=== PATIENT | male | born 1965 | race Hispanic/Latino ===

== ENCOUNTER 2017-05-17 19:30 | Emergency (ER) | payer OTHER ==
--- NOTE | 2017-05-17 20:55 | Emergency Department Report ---
ED General Adult HPI - General Chief complaint: Allergic Reaction Stated complaint: ALLERGIC REACTION Time Seen by Provider: 05/17/17 20:32 Source: patient, EMS (ems notes not available at time of chart dictation), RN notes reviewed Mode of arrival: Wheelchair Limitations: No Limitations - History of Present Illness Initial comments: This is a 51-year-old male who was previously unknown to this provider, his primary care doctor is with [facility]. He is brought to the hospital by EMS for presumed allergic reaction. At 5:50 PM today, patient began to develop burning sensation on his scalp, face, subjective feeling of swelling inside his mouth, diffuse itching and skin rash. He was given steroids, and Benadryl by EMS, and reports that all of his symptoms have since resolved. Patient denies complaints at this time. He does not have any idea as to what may have caused this. No recent colognes, creams, lotions, hair dye, food additives or products, or any new agents in his life. He has no symptoms at this time, and would like to go home -: Gradual Consistency: now resolved Improves with: medication Associated Symptoms: nausea/vomiting (now resolved), other (all symptoms resolved) - Related Data Home Medications Medication Instructions Recorded Confirmed Last Taken Aspirin [Adult Low Dose Aspirin EC] 81 mg PO DAILY 05/17/17 05/17/17 05/17/17 AtorvaSTATin [Lipitor] 10 mg PO QHS 05/17/17 05/17/17 05/17/17 Previous Rx's Medication Instructions Recorded Last Taken Type EPINEPHrine [Epipen 2-Quoc] 0.3 mg IM DAILY PRN #2 ml 05/17/17 Unknown Rx Famotidine [Pepcid] 20 mg PO BID #10 tablet 05/17/17 Unknown Rx diphenhydrAMINE [Benadryl] 50 mg PO Q8HR PRN #20 capsule 05/17/17 Unknown Rx predniSONE [Deltasone] 40 mg PO QDAY #8 tab 05/17/17 Unknown Rx Allergies Allergy/AdvReac Type Severity Reaction Status Date / Time No Known Allergies Allergy Unverified 05/17/17 19:58 ED Review of Systems ROS: Stated complaint: ALLERGIC REACTION Other details as noted in HPI Constitutional: denies: fever Eyes: denies: eye discharge ENT: denies: throat pain, epistaxis, congestion Respiratory: denies: cough, wheezing Cardiovascular: denies: chest pain Gastrointestinal: denies: abdominal pain Genitourinary: denies: dysuria Musculoskeletal: denies: arthralgia Skin: lesions (now resolved) Neurological: weakness (now resolved) ED Past Medical Hx - Past Medical History Previous Medical History?: Yes Additional medical history: high cholesterol - Surgical History Past Surgical History?: No - Social History Smoking Status: Current Every Day Smoker Substance Use Type: Alcohol - Medications Home Medications: Home Medications Medication Instructions Recorded Confirmed Last Taken Type Aspirin [Adult Low Dose Aspirin EC] 81 mg PO DAILY 05/17/17 05/17/17 05/17/17 History AtorvaSTATin [Lipitor] 10 mg PO QHS 05/17/17 05/17/17 05/17/17 History EPINEPHrine [Epipen 2-Quoc] 0.3 mg IM DAILY PRN #2 ml 05/17/17 Unknown Rx Famotidine [Pepcid] 20 mg PO BID #10 tablet 05/17/17 Unknown Rx diphenhydrAMINE [Benadryl] 50 mg PO Q8HR PRN #20 capsule 05/17/17 Unknown Rx predniSONE [Deltasone] 40 mg PO QDAY #8 tab 05/17/17 Unknown Rx ED Physical Exam - General Limitations: No Limitations General appearance: alert, in no apparent distress - Head Head exam: Present: atraumatic, normocephalic - Eye Eye exam: Present: normal appearance, PERRL, EOMI. Absent: nystagmus - ENT ENT exam: Present: normal exam, normal orophraynx, mucous membranes moist, normal external ear exam - Neck Neck exam: Present: normal inspection, full ROM. Absent: tenderness, meningismus - Respiratory Respiratory exam: Present: normal lung sounds bilaterally. Absent: respiratory distress, wheezes, rales, rhonchi, stridor, chest wall tenderness, accessory muscle use, decreased breath sounds, prolonged expiratory - Cardiovascular Cardiovascular Exam: Present: regular rate, normal rhythm, normal heart sounds. Absent: bradycardia, systolic murmur, diastolic murmur, rubs, gallop - GI/Abdominal GI/Abdominal exam: Present: soft, normal bowel sounds. Absent: distended, tenderness, guarding, rebound, rigid, bruit, pulsatile mass - Rectal Rectal exam: Present: deferred - Extremities Exam Extremities exam: Present: normal inspection, full ROM, normal capillary refill. Absent: tenderness, pedal edema, joint swelling, calf tenderness - Back Exam Back exam: Present: normal inspection, full ROM. Absent: tenderness, CVA tenderness (R), CVA tenderness (L), muscle spasm, paraspinal tenderness, vertebral tenderness - Neurological Exam Neurological exam: Present: alert, oriented X3, normal gait, other (Extraocular movements intact. Tongue midline. No facial droop. Facial sensation intact to light touch in the V1, V2, V3 distribution bilaterally. 5 and 5 strength in 4 extremities.. Sensation is intact to light touch in 4 extremities.). Absent : motor sensory deficit - Psychiatric Psychiatric exam: Present: normal affect, normal mood - Skin Skin exam: Present: warm, dry, intact, normal color. Absent: rash ED Course Vital Signs 05/17/17 05/17/17 05/17/17 19:43 19:45 19:53 Temperature 97.9 F Pulse Rate 103 H 101 H 104 H Respiratory 16 15 16 Rate Blood Pressure 124/85 132/91 Blood Pressure 132/91 [Right] O2 Sat by Pulse 93 92 Oximetry 05/17/17 05/17/17 05/17/17 20:00 20:15 20:30 Temperature Pulse Rate 96 H 97 H 98 H Respiratory 13 16 15 Rate Blood Pressure 130/89 114/80 117/80 Blood Pressure [Right] O2 Sat by Pulse 95 Oximetry 05/17/17 05/17/17 20:45 21:00 Temperature Pulse Rate 95 H 91 H Respiratory 19 18 Rate Blood Pressure 128/80 123/76 Blood Pressure [Right] O2 Sat by Pulse 93 95 Oximetry ED Medical Decision Making - Lab Data Vital Signs 05/17/17 05/17/17 05/17/17 19:43 19:45 19:53 Temperature 97.9 F Pulse Rate 103 H 101 H 104 H Respiratory 16 15 16 Rate Blood Pressure 124/85 132/91 Blood Pressure 132/91 [Right] O2 Sat by Pulse 93 92 Oximetry - Medical Decision Making Differential diagnosis: Allergic reaction, now resolved Assessment and plan: 51-year-old male with probable resolved allergic reaction. He is afebrile, with reassuring vital signs, his tachycardia has resolved on my physical examination. He is speaking in full sentences, without stridor or dysphonia, and he is able to tolerate liquid feeds. Agent and family instructed that theoretically allergic reaction may bounce back within 72 hours , they're reliable to follow up, they have been instructed to follow-up in outpatient on site services specialist for further outpatient testing. Patient indicates he is ready to go, return precautions are reviewed. Critical care attestation.: If time is entered above; I have spent that time in minutes in the direct care of this critically ill patient, excluding procedure time. ED Disposition Clinical Impression: History of allergy Disposition: [id number] TO HOME OR SELFCARE Is pt being admited?: No Does the pt Need Aspirin: No Condition: Stable Instructions: Allergies (ED) Additional Instructions: Take the medications as directed. Contact private insurance company, and arrange follow-up with an outpatient on site services specialist within the next month. If patient develops inability to speak, inability to breathe, swelling in the neck or in the tongue, use the epinephrine pen runaway as directed, and contact 911. Return to the ER right away with fevers, chills, lethargy, irritability, projectile vomiting, change in mental status, inability to speak, inability to breathe Prescriptions: diphenhydrAMINE [Benadryl] 50 mg PO Q8HR PRN #20 capsule PRN Reason: Allergic Reaction EPINEPHrine [Epipen 2-Quoc] 0.3 mg IM DAILY PRN #2 ml PRN Reason: Allergic Reaction Famotidine [Pepcid] 20 mg PO BID #10 tablet predniSONE [Deltasone] 40 mg PO QDAY #8 tab Referrals: PRIMARY CARE, [Primary Care Provider] - 3-5 Days
[2017-05-17 21:12] VITALS: BP 123/76
== END 2017-05-17 21:14 | disposition home or self-care (01) ==
LOC: ED 19:30
DX: T78.40XA Allergy, unspecified, initial encounter (principal); X58.XXXA Exposure to other specified factors, initial encounter; Y93.9 Activity, unspecified; Y99.9 Unspecified external cause status; Y92.89 Other specified places as the place of occurrence of the external cause
CPT/HCPCS: 99283